=== PATIENT | female | born 1965 | race Caucasian/White ===

== ENCOUNTER 2017-08-09 07:24 | Day surgery (SDC) | payer MEDICAID ==
[~2017-08-09] VITALS: Ht 154.9 cm; Wt 51.4 kg
[~2017-08-09 07:24] MED LIST: AMLO10TA4 PO; hydrodiuril PO
[2017-08-09] MEDS ORDERED: ONDA4TAB12 PO (07:54)
[2017-08-09] MEDS ORDERED: AMIL5TAB8 PO (07:54)
[2017-08-09] MEDS ORDERED: ZINC50TA60 PO (07:54)
[2017-08-09] MEDS ORDERED: FURO-150 PO (07:54)
[2017-08-09] MEDS ORDERED: POTA20TA10 PO (07:54)
[2017-08-09] MEDS ORDERED: albumin (human) 25% 100 ML IV solution IV PRN (07:55)
[2017-08-09] MEDS ORDERED: normal saline 1000ml 1,000 ML IV PRN (07:55)
[2017-08-09 07:56] VITALS: BP 135/80
[2017-08-09] MEDS ORDERED: LIDOcaine 1% 30ml preserv. free vial SQ ONE (08:00)
[2017-08-09 08:31] VITALS: BP 109/81
[2017-08-09 08:45] VITALS: BP 112/77
[2017-08-09 08:56] VITALS: BP 123/80
[2017-08-09 09:00] VITALS: BP 118/75
[2017-08-09 09:45] LABS: ALBUMIN,BODY FLUID 1.1 G/DL; TOTAL PROTEIN,BODY FLUID 2.8 G/DL
[2017-08-09 10:36] LABS: LYMPHOCYTES,BODY FLUID 38 %; MONOCYTES,BODY FLUID 52 %; NEUTROPHILS,BODY FLUID 10 %
[2017-08-09 10:38] LABS: BF MESOTHELIAL CELLS FEW; BF RBC COUNT 63 /CU MM; BF WBC COUNT 130 /CU MM (0-1000); BFAPPEAR HAZY; BFCOLOR YELLOW; BFVOLUME 42 ML
== END 2017-08-09 09:02 | disposition home or self-care (01) ==
LOC: SSTAY O 07:24
PROVIDERS: ATTEND Radiology Diagnostic Radiology
DX: R18.8 Other ascites (principal); K76.9 Liver disease, unspecified; I10 Essential (primary) hypertension; F17.210 Nicotine dependence, cigarettes, uncomplicated; E87.6 Hypokalemia; Z79.899 Other long term (current) drug therapy; Z72.89 Other problems related to lifestyle; Z79.01 Long term (current) use of anticoagulants; Z90.710 Acquired absence of both cervix and uterus; Z98.890 Other specified postprocedural states; Z86.19 Personal history of other infectious and parasitic diseases; Z82.49 Family history of ischemic heart disease and other diseases of the circulatory system
CPT/HCPCS: 49083; 82042; 84157; 89051; A6257; J3490; J7030

== ENCOUNTER 2017-08-24 07:02 | Day surgery (SDC) | payer MEDICAID ==
[2017-08-24] VITALS (9 sets, daily range): BP systolic 91–102; BP diastolic 58–69
[~2017-08-24] VITALS: Ht 154.9 cm; Wt 48.6 kg
[~2017-08-24 07:02] MED LIST changes: +AMIL5TAB8 PO; +FURO-150 PO; +LIDOcaine 1% 30ml preserv. free vial SQ STA; +ONDA4TAB12 PO; +POTA20TA10 PO; +ZINC50TA60 PO; -hydrodiuril PO
[2017-08-24] MEDS ORDERED: TRAM50TA2 PO (07:32)
[2017-08-24] MEDS ORDERED: albumin (human) 25% 100 ML IV solution IV PRN (07:35)
[2017-08-24] MEDS ORDERED: normal saline 1000ml 1,000 ML IV PRN (07:35)
[2017-08-24 10:42] LABS: LYMPHOCYTES,BODY FLUID 45 %; MONOCYTES,BODY FLUID 31 %; NEUTROPHILS,BODY FLUID 24 %
[2017-08-24 10:43] LABS: BF MESOTHELIAL CELLS FEW; BF RBC COUNT 70 /CU MM; BF WBC COUNT 256 /CU MM (0-1000); BFAPPEAR HAZY; BFCOLOR YELLOW; BFVOLUME 54 ML; GLUCOSE,BODY FLUID 103 MG/DL
[2017-08-24 10:45] LABS: ALBUMIN,BODY FLUID < 0.6 G/DL
== END 2017-08-24 09:25 | disposition home or self-care (01) ==
LOC: SSTAY O 07:02
PROVIDERS: ATTEND Radiology Diagnostic Radiology
DX: R18.8 Other ascites (principal); B19.20 Unspecified viral hepatitis C without hepatic coma; I10 Essential (primary) hypertension; F17.210 Nicotine dependence, cigarettes, uncomplicated; F32.9 Major depressive disorder, single episode, unspecified; Z90.711 Acquired absence of uterus with remaining cervical stump; Z79.01 Long term (current) use of anticoagulants; Z79.891 Long term (current) use of opiate analgesic; Z79.899 Other long term (current) drug therapy; Z98.890 Other specified postprocedural states; Z72.89 Other problems related to lifestyle
CPT/HCPCS: 49083; 82042; 82945; 84157; 87070; 87075; 87102; 89051; A6257; J3490; J7030

== ENCOUNTER 2017-09-10 07:21 | Day surgery (SDC) | payer MEDICAID ==
[~2017-09-10] VITALS: Ht 154.9 cm; Wt 46.6 kg
[~2017-09-10 07:21] MED LIST changes: -LIDOcaine 1% 30ml preserv. free vial SQ STA; +LIDOcaine 1%/PF 5ML 10 MG/ML VIAL SQ STA; +TRAM50TA2 PO
[2017-09-10 07:39] VITALS: BP 130/84
[2017-09-10] MEDS ORDERED: normal saline 1000ml 1,000 ML IV PRN (07:50)
[2017-09-10 08:40] VITALS: BP 121/71
[2017-09-10 08:45] VITALS: BP 128/85
[2017-09-10 09:00] VITALS: BP 135/80
[2017-09-10 09:13] VITALS: BP 113/81
[2017-09-10 09:15] VITALS: BP 120/76
[2017-09-10 10:11] LABS: LDH,BODY FLUID 48 U/L
[2017-09-10 10:38] LABS: BFAPPEAR HAZY
[2017-09-10 10:39] LABS: BFCOLOR YELLOW; BFVOLUME 52 ML
[2017-09-10 10:40] LABS: BF WBC COUNT 177 /CU MM (0-1000)
[2017-09-10 10:41] LABS: BF MESOTHELIAL CELLS FEW; BF RBC COUNT 113 /CU MM; LYMPHOCYTES,BODY FLUID 36 %; MONOCYTES,BODY FLUID 57 %; NEUTROPHILS,BODY FLUID 7 %
[2017-09-10 10:44] LABS: OTHER CELLS,BODY FLUID MACROPHAGES
== END 2017-09-10 09:20 | disposition home or self-care (01) ==
LOC: SSTAY O 07:21
PROVIDERS: ATTEND Radiology Diagnostic Radiology
DX: R18.8 Other ascites (principal); I10 Essential (primary) hypertension; E87.6 Hypokalemia; F32.9 Major depressive disorder, single episode, unspecified; F17.210 Nicotine dependence, cigarettes, uncomplicated; Z90.710 Acquired absence of both cervix and uterus; Z86.19 Personal history of other infectious and parasitic diseases; Z98.890 Other specified postprocedural states; Z79.01 Long term (current) use of anticoagulants; Z79.899 Other long term (current) drug therapy; Z72.89 Other problems related to lifestyle; Z79.891 Long term (current) use of opiate analgesic; Z82.49 Family history of ischemic heart disease and other diseases of the circulatory system
CPT/HCPCS: 49083; 83615; 84157; 87070; 89051; A6257; J7030

== ENCOUNTER 2017-10-05 14:34 | Inpatient (IN) | payer MEDICAID ==
[~2017-10-05] VITALS: Ht 571.8 cm; Wt 54.5 kg
[~2017-10-05 14:34] MED LIST changes: -FURO-150 PO; -LIDOcaine 1%/PF 5ML 10 MG/ML VIAL SQ STA; -POTA20TA10 PO
[2017-10-05] MEDS ORDERED: normal saline 1000ML IV soln IV ONE (14:50)
[2017-10-05] MEDS ORDERED: ondansetron/PF 4mg/2ml inj IV ONE (14:50)
[2017-10-05] MEDS ORDERED: pantoprazole 40 MG vial IV ONE (14:50)
[2017-10-05 15:16] LABS: BASOPHILS % (AUTO) 0.1 % (0-1); EOSINOPHILS # (AUTO) 0.2 X10'3 (0-0.9); HEMATOCRIT 27.8 % (35.0-45.0); HEMOGLOBIN 9.3 g/dl (12.0-16.0); LYMPHOCYTES # (AUTO) 1.6 X10'3 (1.1-4.8); LYMPHOCYTES % (AUTO) 9.3 % (21-51); MEAN CORPUSCULAR HEMOGLOBIN 31.3 PG (27.0-31.0); MEAN CORPUSCULAR HGB CONC 33.5 % (33.0-36.5); MEAN CORPUSCULAR VOLUME 93.2 FL (78-98); MEAN PLATELET VOLUME 5.6 FL (7.4-10.4); MONOCYTES # (AUTO) 1.7 X10'3 (0-0.9); MONOCYTES % (AUTO) 9.5 % (2-12); NEUTROPHILS % (AUTO) 80.1 % (42-75); PLATELET COUNT 462 X10'3 (140-440); RED BLOOD COUNT 2.99 X10'6 (4.20-5.60); RED CELL DISTRIBUTION WIDTH 15.8 % (11.5-14.5); WHITE BLOOD COUNT 17.4 X10'3 (4.5-11.0)
[2017-10-05 15:28] LABS: INR 1.1 INR; PARTIAL THROMBOPLASTIN TIME 30 SECONDS (22-32); PROTHROMBIN TIME 11.4 SECONDS (9.0-12.0)
[2017-10-05 15:32] LABS: ALANINE AMINOTRANSFERASE 17 U/L (12-78); ALBUMIN 1.6 G/DL (3.4-5.0); ALBUMIN/GLOBULIN RATIO 0.3 (1.1-1.5); ALKALINE PHOSPHATASE 86 IU/L (46-116); ANION GAP 4 (8-16); ASPARTATE AMINO TRANSFERASE 23 U/L (10-37); BILIRUBIN,TOTAL 0.6 MG/DL (0.1-1.0); BLOOD UREA NITROGEN 23 MG/DL (7-18); BUN/CREATININE RATIO 15.1 (6.6-38.0); CALCIUM 8.6 MG/DL (8.5-10.1); CHLORIDE 104 MMOL/L (99-107); CREATININE 1.52 MG/DL (0.40-0.90); GLUCOSE 163 MG/DL (70-104); POTASSIUM 4.4 MMOL/L (3.5-5.1); SODIUM 136 MMOL/L (135-145); TOTAL CARBON DIOXIDE 28.3 MMOL/L (24-32); TOTAL PROTEIN 6.5 G/DL (6.4-8.2); eGFR 36 ML/MIN
[2017-10-05] MEDS ORDERED: octreotide inj. 1,250 MCG in normal saline 250ml IV soln 250 ML IV ONE (16:25)
[2017-10-05] MEDS ORDERED: labetalol 20mg/4ml (5mg/ml) syringe IV ONE (16:40)
[2017-10-05 16:42] LABS: CLARITY,URINE CLEAR (Clear); COLOR,URINE YELLOW (Yellow); GLUCOSE, URINE NEGATIVE (Neg); KETONES,URINE NEGATIVE (Neg); LEUKOCYTE ESTERASE ,URINE NEGATIVE (Neg); NITRITES, URINE NEGATIVE (Neg); OCCULT BLOOD,URINE NEGATIVE (Neg); PH,URINE 8.5 (4.8-8.0); PROTEIN,URINE TRACE mg/dl (Neg); UROBILINOGEN,URINE 0.2 E.U/dL (0.2-1.0)
[2017-10-05] MEDS: pantoprazole 40MG/NS 100ML BAG 100 ML IV SCH ×2 (16:48→22:23)
[2017-10-05] MEDS ORDERED: piperacillin/tazo 3.375gm/50ml 50 ML IV SCH (16:50)
[2017-10-05 16:51] LABS: UA COLLECTION TYPE FOLEY CATH
[2017-10-05 16:53] LABS: BACTERIA,URINE FEW /HPF (Neg); MUCUS STRANDS MODERATE /LPF (Neg); RBC,URINE 0-2 /HPF (0-2); SQUAMOUS EPITHELIAL CELL,UR MODERATE /LPF (FEW); WBC,URINE 0-4 /HPF (0-4)
[2017-10-05] MEDS ORDERED: ondansetron/PF 4mg/2ml inj IV PRN (17:50)
[2017-10-05] MEDS ORDERED: mag hydrox/Alum hydrox/simeth 30ml oral suspension PO PRN (17:50)
[2017-10-05] MEDS ORDERED: HYDROcodone/acetaminophen 10/325mg tab PO PRN (17:50)
[2017-10-05] MEDS ORDERED: diphenhydrAMINE 25mg capsule PO PRN (17:50)
[2017-10-05] MEDS ORDERED: HYDROmorphone inj. 0.5 MG/0.5 ML DISP.SYRIN IV PRN ×2 (17:50)
[2017-10-05] MEDS ORDERED: morphine 4 MG/ML inj SYRINge IV PRN ×2 (17:50)
[2017-10-05] MEDS ORDERED: acetaminophen 325mg tablet PO PRN ×2 (17:50)
[2017-10-05] MEDS ORDERED: normal saline 1000ml 1,000 ML IV SCH (17:50)
[2017-10-05] MEDS ORDERED: diphenhydrAMINE 50 mg/ml inj IV PRN (17:50)
[2017-10-05] MEDS ORDERED: acetaminophen 650mg rectal suppository RC PRN (17:50)
[2017-10-05] MEDS ORDERED: HYDROcodone/acetaminophen 5mg/325mg tablet PO PRN (17:50)
[2017-10-05] MEDS ORDERED: bisacodyl 10mg suppository rectal RC PRN (17:50)
[2017-10-05] MEDS ORDERED: metoclopramide 5 mg/ml inj IV PRN (17:50)
[2017-10-05] MEDS ORDERED: magnesium hydroxide 30ml (MOM) UD suspension PO PRN (17:50)
[2017-10-05] MEDS ORDERED: tranexamic acid 100mg/ml inj. IV ONE (18:00)
[2017-10-05 18:23] LABS: MAGNESIUM 1.9 MG/DL (1.5-2.4); PHOSPHORUS 4.4 MG/DL (2.3-4.5)
[2017-10-05] MEDS ORDERED: dexamethasone sod phosphate 10mg/ml inj IV STA (18:26)
[2017-10-05] MEDS ORDERED: levetiracetam inj 1,000 MG in normal saline 100ml IV soln 90 ML IV ONE (18:30)
[2017-10-05] MEDS ORDERED: TRANEXAMIC ACID IV ONE (18:30)
[2017-10-05] MEDS ORDERED: NORMAL SALINE IV ONE (18:30)
[2017-10-05] MEDS ORDERED: levetiracetam 250mg tablet PO ONE (18:45)
[2017-10-05] MEDS ORDERED: CefTRIAXone/D5W-Rocephin 1gm 50 ML IV SCH (20:00)
[2017-10-05] MEDS ORDERED: docusate sod 100mg capsule PO SCH (20:00)
[2017-10-05] MEDS ORDERED: pantoprazole 40MG/NS 100ML BAG 100 ML IV SCH (21:00)
[2017-10-05] MEDS ORDERED: temazepam 15mg capsule PO PRN (21:00)
[2017-10-06] MEDS: pantoprazole 40MG/NS 100ML BAG 100 ML IV SCH (01:22)
[2017-10-06] MEDS ORDERED: piperacillin/tazo 3.375gm/50ml 50 ML IV SCH (02:00)
[2017-10-06 03:28] VITALS: BP 122/70
[2017-10-06 07:02] LABS: OCCULT BLOOD STOOL NEGATIVE (Neg)
== END 2017-10-06 03:30 | disposition short-term general hospital (02) | DRG 720 ==
LOC: ER 14:34 → ED HOLD 17:50
PROVIDERS: ADMIT Family Medicine; ATTEND Family Medicine
DX: A41.9 Sepsis, unspecified organism (principal); I61.9 Nontraumatic intracerebral hemorrhage, unspecified; N17.9 Acute kidney failure, unspecified; R18.8 Other ascites; K76.6 Portal hypertension; I10 Essential (primary) hypertension; K92.2 Gastrointestinal hemorrhage, unspecified; D64.9 Anemia, unspecified; K74.60 Unspecified cirrhosis of liver; K80.20 Calculus of gallbladder without cholecystitis without obstruction; B19.20 Unspecified viral hepatitis C without hepatic coma; Z79.899 Other long term (current) drug therapy; Z90.710 Acquired absence of both cervix and uterus; Z86.73 Personal history of transient ischemic attack (TIA), and cerebral infarction without residual deficits
CPT/HCPCS: 36415; 70450; 71045; 74176; 80053; 81001; 82272; 83605; 83735; 83880; 84100; 85025; 85610; 85730; 86885; 86900; 86901; 87040; 93005; 96361; 96365; 96368; 96375; 99285; A6449; C9113; J0696; J1100; J1953; J2354; J2405; J2543; J3490; J7030

== ENCOUNTER 2017-10-29 07:30 | Day surgery (SDC) | payer MEDICAID ==
[2017-10-29] VITALS (7 sets, daily range): BP systolic 120–155; BP diastolic 76–93
[~2017-10-29] VITALS: Ht 154.9 cm; Wt 47.2 kg
[~2017-10-29 07:30] MED LIST changes: +LIDOcaine 1%/PF 5ML 10 MG/ML VIAL SQ ONE
[2017-10-29] MEDS ORDERED: albumin (human) 25% 100 ML IV solution IV PRN (08:05)
[2017-10-29] MEDS ORDERED: KEP500T PO (08:37)
[2017-10-29] MEDS ORDERED: LACT10SO PO (08:37)
[2017-10-29] MEDS ORDERED: PANT20TA2 PO (08:37)
[2017-10-29] MEDS ORDERED: LIDO700A47 TOP (08:37)
[2017-10-29] MEDS ORDERED: MULT-933 PO (08:37)
[2017-10-29] MEDS ORDERED: HYDR-565 PO (08:37)
[2017-10-29] MEDS ORDERED: SENN-161 PO (08:37)
[2017-10-29] MEDS ORDERED: THI100T PO (08:37)
[2017-10-29] MEDS ORDERED: LACTC PO (08:37)
[2017-10-29] MEDS ORDERED: SPIR25TA5 PO (08:37)
== END 2017-10-29 10:00 ==
LOC: SSTAY O 07:30
PROVIDERS: ATTEND Radiology Diagnostic Radiology
DX: R18.8 Other ascites (principal); I10 Essential (primary) hypertension; F32.9 Major depressive disorder, single episode, unspecified; Z90.711 Acquired absence of uterus with remaining cervical stump; Z79.01 Long term (current) use of anticoagulants; Z86.19 Personal history of other infectious and parasitic diseases; Z86.73 Personal history of transient ischemic attack (TIA), and cerebral infarction without residual deficits; Z87.891 Personal history of nicotine dependence; Z87.440 Personal history of urinary (tract) infections; Z79.891 Long term (current) use of opiate analgesic; Z98.890 Other specified postprocedural states; Z79.899 Other long term (current) drug therapy; Z82.49 Family history of ischemic heart disease and other diseases of the circulatory system
CPT/HCPCS: 49083; A6257; J2001; P9047

== ENCOUNTER 2017-11-30 07:25 | Day surgery (SDC) | payer MEDICAID ==
[~2017-11-30] VITALS: Ht 154.9 cm; Wt 50.2 kg
[2017-11-30] VITALS (9 sets, daily range): BP systolic 113–149; BP diastolic 67–93
[~2017-11-30 07:25] MED LIST changes: -AMIL5TAB8 PO; +HYDR-565 PO; +KEP500T PO; +LACT10SO PO; +LACTC PO; +LIDO700A47 TOP; +LIDOcaine 1% (10mg/ml)w/preservative injection 20ml MDV SQ ONE; +MULT-933 PO; +PANT20TA2 PO; +SENN-161 PO; +SPIR25TA5 PO; +THI100T PO
[2017-11-30] MEDS ORDERED: normal saline 1000ml 1,000 ML IV PRN (08:00)
[2017-11-30] MEDS ORDERED: albumin (human) 25% 100 ML IV solution IV PRN (08:00)
== END 2017-11-30 10:37 | disposition home or self-care (01) ==
LOC: SSTAY O 07:25
PROVIDERS: ATTEND Radiology Diagnostic Radiology
DX: R18.8 Other ascites (principal); I10 Essential (primary) hypertension; F17.210 Nicotine dependence, cigarettes, uncomplicated; F32.9 Major depressive disorder, single episode, unspecified; Z86.19 Personal history of other infectious and parasitic diseases; Z79.891 Long term (current) use of opiate analgesic; Z86.73 Personal history of transient ischemic attack (TIA), and cerebral infarction without residual deficits; Z87.440 Personal history of urinary (tract) infections; Z90.711 Acquired absence of uterus with remaining cervical stump; Z98.890 Other specified postprocedural states; Z79.899 Other long term (current) drug therapy; Z82.49 Family history of ischemic heart disease and other diseases of the circulatory system
CPT/HCPCS: 49083; A6257; J2001; J7030; P9047

== ENCOUNTER 2017-12-24 16:13 | Observation (INO) | payer MEDICAID ==
[~2017-12-24] VITALS: Ht 162.6 cm; Wt 51.0 kg
[2017-12-24] VITALS (7 sets, daily range): BP systolic 123–144; BP diastolic 77–95
[~2017-12-24 16:13] MED LIST changes: +HYDR-4353 PO; -HYDR-565 PO; -LIDOcaine 1% (10mg/ml)w/preservative injection 20ml MDV SQ ONE; -LIDOcaine 1%/PF 5ML 10 MG/ML VIAL SQ ONE
[2017-12-24] MEDS ORDERED: normal saline 1000ML IV soln IVB ONE (16:25)
[2017-12-24 16:48] LABS: BASOPHILS # (AUTO) 0.1 X10'3 (0-0.2); BASOPHILS % (AUTO) 0.8 % (0-1); EOSINOPHILS # (AUTO) 0.3 X10'3 (0-0.9); EOSINOPHILS % (AUTO) 3.2 % (0-6); HEMATOCRIT 22.6 % (35.0-45.0); HEMOGLOBIN 7.4 g/dl (12.0-16.0); LYMPHOCYTES # (AUTO) 2.1 X10'3 (1.1-4.8); LYMPHOCYTES % (AUTO) 26.8 % (21-51); MEAN CORPUSCULAR HEMOGLOBIN 28.2 PG (27.0-31.0); MEAN CORPUSCULAR HGB CONC 32.5 % (33.0-36.5); MEAN CORPUSCULAR VOLUME 86.8 FL (78-98); MEAN PLATELET VOLUME 5.7 FL (7.4-10.4); MONOCYTES # (AUTO) 1.2 X10'3 (0-0.9); MONOCYTES % (AUTO) 14.4 % (2-12); NEUTROPHILS # (AUTO) 4.4 X10'3 (1.8-7.7); NEUTROPHILS % (AUTO) 54.8 % (42-75); PLATELET COUNT 529 X10'3 (140-440); RED BLOOD COUNT 2.61 X10'6 (4.20-5.60); RED CELL DISTRIBUTION WIDTH 15.9 % (11.5-14.5)
[2017-12-24 16:59] LABS: ALANINE AMINOTRANSFERASE 14 U/L (12-78); ALBUMIN 2.5 G/DL (3.4-5.0); ALBUMIN/GLOBULIN RATIO 0.4 (1.1-1.5); ALKALINE PHOSPHATASE 126 IU/L (46-116); ANION GAP 11 (8-16); ASPARTATE AMINO TRANSFERASE 29 U/L (10-37); BILIRUBIN,TOTAL 0.2 MG/DL (0.1-1.0); BLOOD UREA NITROGEN 25 MG/DL (7-18); BUN/CREATININE RATIO 17.5 (6.6-38.0); CALCIUM 9.6 MG/DL (8.5-10.1); CHLORIDE 100 MMOL/L (99-107); CREATININE 1.43 MG/DL (0.40-0.90); GLUCOSE 125 MG/DL (70-104); POTASSIUM 3.7 MMOL/L (3.5-5.1); SODIUM 138 MMOL/L (135-145); TOTAL CARBON DIOXIDE 27.4 MMOL/L (24-32); TOTAL PROTEIN 8.2 G/DL (6.4-8.2); eGFR 39 ML/MIN
[2017-12-24 17:03] LABS: TROPONIN I < 0.04 NG/ML (0.0-0.05)
[2017-12-24 17:15] LABS: CLARITY,URINE SLIGHTLY CLOUDY (Clear); COLOR,URINE STRAW (Yellow); GLUCOSE, URINE NEGATIVE (Neg); KETONES,URINE NEGATIVE (Neg); LEUKOCYTE ESTERASE ,URINE MODERATE (Neg); NITRITES, URINE NEGATIVE (Neg); OCCULT BLOOD,URINE NEGATIVE (Neg); PH,URINE 6.5 (4.8-8.0); PROTEIN,URINE NEGATIVE (Neg); UA COLLECTION TYPE CLN CATCH MIDSTREAM; UROBILINOGEN,URINE 0.2 E.U/dL (0.2-1.0)
[2017-12-24] MEDS ORDERED: FOLI1TAB16 PO (17:16)
[2017-12-24] MEDS ORDERED: GABA-530 PO (17:16)
[2017-12-24] MEDS ORDERED: FURO40TA4 PO (17:16)
[2017-12-24] MEDS ORDERED: POTA20TA19 PO (17:18)
[2017-12-24 17:21] LABS: SQUAMOUS EPITHELIAL CELL,UR MANY /LPF (FEW)
[2017-12-24 17:22] LABS: MUCUS STRANDS NONE SEEN /LPF (Neg); TRANSITIONAL EPI CELLS,URINE MODERATE /HPF
[2017-12-24 17:24] LABS: BACTERIA,URINE 3+ /HPF (Neg); RBC,URINE 0-2 /HPF (0-2); WBC,URINE 30-50 /HPF (0-4)
[2017-12-24] MEDS ORDERED: potassium Cl 20 mEq SR tablet PO PRN ×2 (17:35)
[2017-12-24] MEDS ORDERED: acetaminophen 325mg tablet PO PRN ×2 (17:35)
[2017-12-24] MEDS ORDERED: magnesium hydroxide 30ml (MOM) UD suspension PO PRN (17:35)
[2017-12-24] MEDS ORDERED: ondansetron/PF 4mg/2ml inj IV PRN (17:35)
[2017-12-24] MEDS ORDERED: potassium Cl 40MEQ/NS 500ml 500 ML IV PRN ×2 (17:35)
[2017-12-24] MEDS ORDERED: mag hydrox/Alum hydrox/simeth 30ml oral suspension PO PRN (17:35)
[2017-12-24] MEDS ORDERED: magnesium 1gm/100ml D5W IVPB 100 ML IV PRN (17:35)
[2017-12-24] MEDS ORDERED: magnesium Cl slow-release 64mg tablet PO PRN (17:35)
[2017-12-24] MEDS ORDERED: magnesium 4gm in 100ml NS 100 ML IV PRN (17:35)
[2017-12-24] MEDS ORDERED: temazepam 15mg capsule PO PRN (21:00)
[2017-12-25] VITALS (7 sets, daily range): BP systolic 139–156; BP diastolic 79–102
[2017-12-25] MEDS: normal saline 1000ml 1,000 ML IV SCH ×2 (04:45→07:51)
[2017-12-25] MEDS ORDERED: pantoprazole 40mg Tablet.DR PO SCH ×2 (07:30→20:00)
[2017-12-25] MEDS ORDERED: K and/or MAG REPLACEMENT MC SCH (08:00)
[2017-12-25 08:39] LABS: HEMATOCRIT 34.6 % (35.0-45.0); HEMOGLOBIN 11.6 g/dl (12.0-16.0); MEAN CORPUSCULAR HGB CONC 33.4 % (33.0-36.5); MEAN CORPUSCULAR VOLUME 86.9 FL (78-98); MEAN PLATELET VOLUME 5.6 FL (7.4-10.4); PLATELET COUNT 424 X10'3 (140-440); RED BLOOD COUNT 3.98 X10'6 (4.20-5.60); RED CELL DISTRIBUTION WIDTH 14.7 % (11.5-14.5); WHITE BLOOD COUNT 8.4 X10'3 (4.5-11.0)
[2017-12-25 08:48] LABS: ALBUMIN 2.6 G/DL (3.4-5.0); ANION GAP 10 (8-16); BLOOD UREA NITROGEN 21 MG/DL (7-18); CALCIUM 9.9 MG/DL (8.5-10.1); CHLORIDE 103 MMOL/L (99-107); CREATININE 1.31 MG/DL (0.40-0.90); GLUCOSE 103 MG/DL (70-104); MAGNESIUM 1.7 MG/DL (1.5-2.4); SODIUM 138 MMOL/L (135-145); TOTAL CARBON DIOXIDE 24.7 MMOL/L (24-32); eGFR 43 ML/MIN
[2017-12-25] MEDS ORDERED: furosemide 40mg tablet PO SCH (11:00)
[2017-12-25] MEDS ORDERED: spironolactone 25 MG tablet PO SCH (11:00)
[2017-12-25] MEDS ORDERED: HYDROcodone/acetaminophen 10/325mg tab PO PRN (11:05)
[2017-12-25] MEDS ORDERED: levetiracetam 250mg tablet PO SCH (11:15)
[2017-12-25] MEDS ORDERED: HYDROcodone/acetaminophen 10/325mg tab PO SCH (12:00)
[2017-12-25] MEDS ORDERED: gabapentin 100mg capsule PO SCH (20:00)
[2017-12-25] MEDS ORDERED: ondansetron 4mg rapidly disintigrating tab PO SCH (20:00)
[2017-12-26] MEDS ORDERED: lactulose 20gm/30ml cup PO SCH (08:00)
[2017-12-26] MEDS ORDERED: folic acid 1mg tablet PO SCH (08:00)
[2017-12-26] MEDS ORDERED: potassium Cl 20 mEq SR tablet PO SCH (08:00)
== END 2017-12-25 11:55 | disposition home health service (06) ==
LOC: ER 16:13 → ED HOLD 17:33 → SUR 3N 20:10
PROVIDERS: ADMIT Family Medicine; ATTEND Family Medicine
DX: D64.9 Anemia, unspecified (principal); K70.31 Alcoholic cirrhosis of liver with ascites; I12.9 Hypertensive chronic kidney disease with stage 1 through stage 4 chronic kidney disease, or unspecified chronic kidney disease; N18.3 Chronic kidney disease, stage 3 (moderate); I85.00 Esophageal varices without bleeding; I69.252 Hemiplegia and hemiparesis following other nontraumatic intracranial hemorrhage affecting left dominant side; Z90.710 Acquired absence of both cervix and uterus
CPT/HCPCS: 36415; 36430; 71045; 80048; 80053; 81001; 82140; 83735; 84484; 85025; 85027; 86885; 86900; 86901; 86920; 87070; 93005; 97110; 97161; 97530; 99291; G0378; J7030; P9016

== ENCOUNTER 2017-12-26 09:19 | Day surgery (SDC) | payer MEDICAID ==
[2017-12-26] VITALS (8 sets, daily range): BP systolic 117–156; BP diastolic 77–95
[~2017-12-26] VITALS: Ht 154.9 cm; Wt 45.9 kg
[~2017-12-26 09:19] MED LIST changes: -AMLO10TA4 PO; +FOLI1TAB16 PO; +FURO40TA4 PO; +GABA-530 PO; -LACTC PO; -LIDO700A47 TOP; -MULT-933 PO; +POTA20TA19 PO; -SENN-161 PO; -THI100T PO; -TRAM50TA2 PO; -ZINC50TA60 PO
[2017-12-26] MEDS ORDERED: albumin (human) 25% 100 ML IV solution IV PRN (09:55)
[2017-12-26] MEDS ORDERED: normal saline 1000ml 1,000 ML IV PRN (09:55)
[2017-12-26] MEDS ORDERED: LIDOcaine 1% (10mg/ml)w/preservative injection 20ml MDV SQ ONE (10:30)
== END 2017-12-26 13:00 | disposition home or self-care (01) ==
LOC: SSTAY O 09:19
PROVIDERS: ATTEND Radiology Diagnostic Radiology
DX: R18.8 Other ascites (principal); I10 Essential (primary) hypertension; F32.9 Major depressive disorder, single episode, unspecified; F10.21 Alcohol dependence, in remission; Z86.73 Personal history of transient ischemic attack (TIA), and cerebral infarction without residual deficits; Z87.891 Personal history of nicotine dependence; Z87.440 Personal history of urinary (tract) infections; Z90.711 Acquired absence of uterus with remaining cervical stump; Z79.891 Long term (current) use of opiate analgesic; Z86.19 Personal history of other infectious and parasitic diseases; Z98.890 Other specified postprocedural states; Z79.899 Other long term (current) drug therapy; Z82.49 Family history of ischemic heart disease and other diseases of the circulatory system
CPT/HCPCS: 49083; J2001; J7030; P9047

== ENCOUNTER 2018-04-10 07:28 | Day surgery (SDC) | payer MEDICAID ==
[~2018-04-10] VITALS: Ht 154.9 cm; Wt 57.4 kg
[2018-04-10] MEDS ORDERED: albumin 25% 50mL bottle X 2 BOTTLES IV ONE (07:50)
[2018-04-10] MEDS ORDERED: normal saline 1000ml 1,000 ML IV PRN (07:50)
[2018-04-10 08:00] VITALS: BP 103/63
[2018-04-10] MEDS ORDERED: LIDOcaine 1% 30ml preserv. free vial SQ ONE (08:00)
[2018-04-10 08:15] VITALS: BP 103/63
== END 2018-04-10 08:35 | disposition home or self-care (01) ==
LOC: SSTAY O 07:28
PROVIDERS: ATTEND Radiology Vascular & Interventional Radiology
DX: K70.31 Alcoholic cirrhosis of liver with ascites (principal); I85.00 Esophageal varices without bleeding; I12.9 Hypertensive chronic kidney disease with stage 1 through stage 4 chronic kidney disease, or unspecified chronic kidney disease; N18.3 Chronic kidney disease, stage 3 (moderate); D47.3 Essential (hemorrhagic) thrombocythemia; F10.21 Alcohol dependence, in remission; F32.9 Major depressive disorder, single episode, unspecified; Z87.440 Personal history of urinary (tract) infections; Z90.711 Acquired absence of uterus with remaining cervical stump; Z79.891 Long term (current) use of opiate analgesic; Z86.73 Personal history of transient ischemic attack (TIA), and cerebral infarction without residual deficits; Z87.891 Personal history of nicotine dependence; Z86.19 Personal history of other infectious and parasitic diseases; Z98.890 Other specified postprocedural states; Z79.899 Other long term (current) drug therapy; Z82.49 Family history of ischemic heart disease and other diseases of the circulatory system
CPT/HCPCS: 76705; J3490; J7030

== ENCOUNTER 2018-04-27 12:08 | Inpatient (IN) | payer MEDICAID ==
[~2018-04-27] VITALS: Ht 162.6 cm; Wt 60.0 kg
[2018-04-27 12:49] LABS: BASOPHILS # (AUTO) 0.1 X10'3 (0-0.2); BASOPHILS % (AUTO) 0.4 % (0-1); EOSINOPHILS # (AUTO) 0.1 X10'3 (0-0.9); EOSINOPHILS % (AUTO) 0.4 % (0-6); HEMATOCRIT 31.6 % (35.0-45.0); HEMOGLOBIN 10.1 g/dl (12.0-16.0); LYMPHOCYTES # (AUTO) 1.8 X10'3 (1.1-4.8); LYMPHOCYTES % (AUTO) 12.8 % (21-51); MEAN CORPUSCULAR HGB CONC 31.9 g/dL (33.0-36.5); MEAN CORPUSCULAR VOLUME 87.7 FL (78-98); MEAN PLATELET VOLUME 6.6 FL (7.4-10.4); MONOCYTES # (AUTO) 0.4 X10'3 (0-0.9); MONOCYTES % (AUTO) 3.1 % (2-12); NEUTROPHILS # (AUTO) 11.9 X10'3 (1.8-7.7); NEUTROPHILS % (AUTO) 83.3 % (42-75); PLATELET COUNT 405 X10'3 (140-440); RED CELL DISTRIBUTION WIDTH 16.1 % (11.5-14.5); WHITE BLOOD COUNT 14.3 X10'3 (4.5-11.0)
[2018-04-27 13:04] LABS: INR 1.1 INR; PARTIAL THROMBOPLASTIN TIME 28 SECONDS (22-32)
[2018-04-27] MEDS ORDERED: lactulose 20gm/30ml cup PO ONE (13:05)
[2018-04-27 13:19] LABS: ACETAMINOPHEN < 2.0 UG/ML (10-30); ALANINE AMINOTRANSFERASE 21 U/L (12-78); ALBUMIN 3.7 G/DL (3.4-5.0); ALBUMIN/GLOBULIN RATIO 0.6 (1.1-1.5); ALKALINE PHOSPHATASE 112 IU/L (46-116); ANION GAP 11 (8-16); ASPARTATE AMINO TRANSFERASE 23 U/L (10-37); BILIRUBIN,TOTAL 0.6 MG/DL (0.1-1.0); BLOOD UREA NITROGEN 18 MG/DL (7-18); BUN/CREATININE RATIO 10.7 (6.6-38.0); CALCIUM 11.9 MG/DL (8.5-10.1); CHLORIDE 102 MMOL/L (99-107); CREATININE 1.69 MG/DL (0.40-0.90); ETHANOL < 0.010 GM/DL (0.0-0.010); GLUCOSE 195 MG/DL (70-104); MAGNESIUM 1.5 MG/DL (1.5-2.4); PHOSPHORUS 4.1 MG/DL (2.3-4.5); POTASSIUM 4.8 MMOL/L (3.5-5.1); SODIUM 139 MMOL/L (135-145); TOTAL CARBON DIOXIDE 25.6 MMOL/L (24-32); TOTAL PROTEIN 9.7 G/DL (6.4-8.2); eGFR 32 ML/MIN
[2018-04-27 14:28] LABS: CLARITY,URINE CLOUDY (Clear); COLOR,URINE STRAW (Yellow); GLUCOSE, URINE NEGATIVE (Neg); KETONES,URINE NEGATIVE (Neg); LEUKOCYTE ESTERASE ,URINE NEGATIVE (Neg); NITRITES, URINE POSITIVE (Neg); OCCULT BLOOD,URINE TRACE-LYSED (Neg); PROTEIN,URINE TRACE mg/dl (Neg); UROBILINOGEN,URINE 0.2 E.U/dL (0.2-1.0)
[2018-04-27 14:31] LABS: UA COLLECTION TYPE FOLEY CATH
[2018-04-27 14:34] LABS: SQUAMOUS EPITHELIAL CELL,UR FEW /LPF (FEW)
[2018-04-27 14:35] LABS: BACTERIA,URINE 3+ /HPF (Neg); RBC,URINE 0-2 /HPF (0-2); WBC,URINE 0-4 /HPF (0-4)
[2018-04-27 14:39] LABS: URINE AMPHETAMINE SCREEN NEGATIVE (Neg); URINE BARBITUATE SCREEN NEGATIVE (Neg); URINE BENZODIAZEPINES SCREEN NEGATIVE (Neg); URINE CANNABINOID SCREEN POSITIVE (Neg); URINE COCAINE SCREEN NEGATIVE (Neg); URINE METHADONE SCREEN NEGATIVE (Neg); URINE OPIATE SCREEN NEGATIVE (Neg); URINE PHENCYCLIDINE SCREEN NEGATIVE (Neg)
[2018-04-27] MEDS ORDERED: CefTRIAXone/D5W-Rocephin 1gm 50 ML IV ONE (14:50)
[2018-04-27] MEDS ORDERED: GABA-532 PO ×2 (15:42→19:02)
[2018-04-27] MEDS ORDERED: NADO20TA PO (15:42)
[2018-04-27] MEDS: dextrose 5%-normal saline 1,000 ML IV SCH (17:01)
--- NOTE | 2018-04-27 18:24 | NUR ---
SPOKE WITH HOSPITALIST, STATES HE PUT IN ADMIT ORDERS. TOLD MD THAT ORDERS WERE NOT SHOWING UP IN [facility].
[2018-04-27] MEDS ORDERED: magnesium hydroxide 30ml (MOM) UD suspension PO PRN (18:35)
[2018-04-27] MEDS ORDERED: mag hydrox/Alum hydrox/simeth 30ml oral suspension PO PRN (18:35)
[2018-04-27] MEDS ORDERED: magnesium 2GM in 50ml NS 50 ML IV PRN (18:35)
[2018-04-27] MEDS ORDERED: potassium Cl 20 mEq SR tablet PO PRN ×2 (18:35)
[2018-04-27] MEDS ORDERED: magnesium 4gm in 100ml NS 100 ML IV PRN (18:35)
[2018-04-27] MEDS ORDERED: potassium Cl 40MEQ/NS 500ml 500 ML IV PRN ×2 (18:35)
[2018-04-27] MEDS ORDERED: magnesium Cl slow-release 64mg tablet PO PRN (18:35)
[2018-04-27] MEDS ORDERED: acetaminophen 325mg tablet PO PRN (18:35)
[2018-04-27] MEDS ORDERED: SPIR100T5 PO (19:02)
--- NOTE | 2018-04-27 19:32 | NUR ---
PT HAS VOMITED A FEW TIMES SINCE SHE HAS BEEN HERE. PT IS MORE ALERT NOW AND ABLE TO ANSWER SIMPLE QUESTIONS. HER MEDS WERE ENTERED IN THE COMPUTER ACCORDING TO THE BOTTLES PROVIDED BY JANNETTE WHO CAME WITH HER. WILL GIVE PT NAUSEA MEDS ORDERED
[2018-04-27] MEDS: ondansetron/PF 4mg/2ml inj IV PRN (19:36)
[2018-04-27] MEDS ORDERED: hyDRALAzine 10mg tablet PO PRN (19:45)
[2018-04-27] MEDS ORDERED: labetalol 20mg/4ml (5mg/ml) syringe IV PRN (19:45)
[2018-04-27] MEDS: metoprolol tartrate 25mg tablet PO SCH (20:00)
[2018-04-27] MEDS: lactulose 20gm/30ml cup PO SCH (20:00)
[2018-04-27] MEDS: lactobacillus rhamnosus 10,000 MMU CELLS/CAPSULE PO SCH (20:00)
[2018-04-27 20:26] LABS: ABG BASE EXCESS -0.9 mmol/L (-2.0-3.0); ABG HCO3 22.5 mmol/L (22.0-26.0); ABG OXYGEN SATURATION 93.4 % (95-98); ABG PCO2 (T) 33.1 mmHg (32.0-45.0); ABG PO2 (T) 69.2 mmHg (83-108); ALLEN'S TEST Positive; FCOHb 0.2 % (0.5-1.5); FMetHb 0.1 % (0.3-1.12); FO2Hb 93.1 % (94-100); TOTAL HEMOGLOBIN 11.5 G/dl (12.0-16.0)
--- NOTE | 2018-04-27 21:41 | NUR ---
ROOM AND NURSE NOT READY FOR REPORT.
--- NOTE | 2018-04-27 22:40 | NUR ---
Received report from Amber VILCHIS. Patient came up via gurney. Patient transferred to bed via slide board. IV fluids running per MD orders. Bernstein draining yellow urine via gravity. Vitals taken. Bed in low and locked position. Call light placed within reach. Bed alarm placed for ALOC.
[2018-04-27] MEDS ORDERED: enalaprilat dihydrate 2.5mg/2ml vial IV ONE (23:05)
[2018-04-27 23:06] VITALS: BP 199/101
[2018-04-27 23:17] VITALS: BP 202/102
[2018-04-27 23:28] VITALS: BP 193/99
[2018-04-28] VITALS (8 sets, daily range): BP systolic 145–210; BP diastolic 86–114
[2018-04-28] MEDS ORDERED: cloNIDine 0.1 MG/24 HOUR patch (7 day patch) TD ONE (00:35)
[2018-04-28] MEDS: dextrose 5%-normal saline 1,000 ML IV SCH ×2 (05:42→20:05)
--- NOTE | 2018-04-28 06:43 | NUR ---
Problems reprioritized. Patient report given, questions answered & plan of care reviewed with Sivan VILCHIS.
[2018-04-28 07:43] LABS: HEMATOCRIT 34.8 % (35.0-45.0); HEMOGLOBIN 11.4 g/dl (12.0-16.0); MEAN CORPUSCULAR HEMOGLOBIN 28.5 PG (27.0-31.0); MEAN CORPUSCULAR HGB CONC 32.7 g/dL (33.0-36.5); MEAN CORPUSCULAR VOLUME 87.1 FL (78-98); MEAN PLATELET VOLUME 6.7 FL (7.4-10.4); PLATELET COUNT 491 X10'3 (140-440); RED BLOOD COUNT 3.99 X10'6 (4.20-5.60); RED CELL DISTRIBUTION WIDTH 15.6 % (11.5-14.5)
[2018-04-28 07:50] LABS: ALBUMIN 3.1 G/DL (3.4-5.0); ANION GAP 15 (8-16); BLOOD UREA NITROGEN 25 MG/DL (7-18); BUN/CREATININE RATIO 15.2 (6.6-38.0); CALCIUM 10.4 MG/DL (8.5-10.1); CHLORIDE 102 MMOL/L (99-107); CREATININE 1.65 MG/DL (0.40-0.90); GLUCOSE 258 MG/DL (70-104); MAGNESIUM 1.4 MG/DL (1.5-2.4); POTASSIUM 4.2 MMOL/L (3.5-5.1); SODIUM 139 MMOL/L (135-145); TOTAL CARBON DIOXIDE 22.3 MMOL/L (24-32); WHITE BLOOD COUNT 25.8 X10'3 (4.5-11.0); eGFR 33 ML/MIN
[2018-04-28] MEDS ORDERED: CefTRIAXone 2gm/D5W 50ml 50 ML IV SCH (08:00)
[2018-04-28] MEDS: K and/or MAG REPLACEMENT MC SCH (08:00)
[2018-04-28] MEDS: enoxaparin 40mg/0.4ml syringe SQ SCH (08:44)
[2018-04-28 08:51] LABS: ANISOCYTOSIS 1+; PLATELET ESTIMATE INCREASED; TOTAL CELLS COUNTED 100
[2018-04-28 08:52] LABS: TOXIC GRANULATION 1+
[2018-04-28] MEDS: pantoprazole 40mg Tablet.DR PO SCH ×2 (08:58→19:54)
[2018-04-28] MEDS: lactobacillus rhamnosus 10,000 MMU CELLS/CAPSULE PO SCH ×2 (09:01→21:54)
[2018-04-28] MEDS: lactulose 20gm/30ml cup PO SCH ×3 (09:01→21:27)
[2018-04-28] MEDS: folic acid 1mg tablet PO SCH (09:02)
[2018-04-28] MEDS: metoprolol tartrate 25mg tablet PO SCH ×3 (09:04→21:28)
--- NOTE | 2018-04-28 09:12 | NUR ---
graphics edit technician at bedside
[2018-04-28] MEDS: albumin 25% 50mL bottle 100 ML IV SCH (21:27)
[2018-04-28] MEDS: cloNIDine 0.1 mg tablet PO SCH (22:43)
[2018-04-28] MEDS: ondansetron/PF 4mg/2ml inj IV PRN (23:09)
[2018-04-29] VITALS (7 sets, daily range): BP systolic 92–120; BP diastolic 51–64
[2018-04-29 07:12] LABS: ALBUMIN 2.8 G/DL (3.4-5.0); ANION GAP 11 (8-16); BLOOD UREA NITROGEN 31 MG/DL (7-18); BUN/CREATININE RATIO 20.5 (6.6-38.0); CALCIUM 9.1 MG/DL (8.5-10.1); CHLORIDE 113 MMOL/L (99-107); CREATININE 1.51 MG/DL (0.40-0.90); GLUCOSE 118 MG/DL (70-104); MAGNESIUM 1.6 MG/DL (1.5-2.4); POTASSIUM 3.6 MMOL/L (3.5-5.1); SODIUM 147 MMOL/L (135-145); TOTAL CARBON DIOXIDE 23.4 MMOL/L (24-32); eGFR 36 ML/MIN
[2018-04-29] MEDS: pantoprazole 40mg Tablet.DR PO SCH ×2 (07:30→18:34)
[2018-04-29] MEDS: lactobacillus rhamnosus 10,000 MMU CELLS/CAPSULE PO SCH ×2 (07:30→20:55)
[2018-04-29] MEDS: cloNIDine 0.1 mg tablet PO SCH ×2 (07:31→20:00)
[2018-04-29] MEDS: lactulose 20gm/30ml cup PO SCH ×2 (07:31→20:55)
[2018-04-29] MEDS: folic acid 1mg tablet PO SCH (07:31)
[2018-04-29] MEDS: enoxaparin 40mg/0.4ml syringe SQ SCH (07:32)
[2018-04-29] MEDS: dextrose 5%-normal saline 1,000 ML IV SCH ×2 (07:50→23:10)
[2018-04-29 08:00] LABS: BASOPHILS # (AUTO) 0.1 X10'3 (0-0.2); BASOPHILS % (AUTO) 0.3 % (0-1); EOSINOPHILS # (AUTO) 0.1 X10'3 (0-0.9); EOSINOPHILS % (AUTO) 0.4 % (0-6); HEMATOCRIT 24.8 % (35.0-45.0); HEMOGLOBIN 8.4 g/dl (12.0-16.0); LYMPHOCYTES % (AUTO) 23.1 % (21-51); MEAN CORPUSCULAR HGB CONC 33.7 g/dL (33.0-36.5); MEAN CORPUSCULAR VOLUME 88.8 FL (78-98); MEAN PLATELET VOLUME 6.5 FL (7.4-10.4); MONOCYTES % (AUTO) 11.4 % (2-12); NEUTROPHILS # (AUTO) 11.3 X10'3 (1.8-7.7); NEUTROPHILS % (AUTO) 64.8 % (42-75); PLATELET COUNT 292 X10'3 (140-440); RED BLOOD COUNT 2.79 X10'6 (4.20-5.60); WHITE BLOOD COUNT 17.5 X10'3 (4.5-11.0)
[2018-04-29] MEDS: metoprolol tartrate 25mg tablet PO SCH ×2 (08:00→20:00)
[2018-04-29] MEDS: K and/or MAG REPLACEMENT MC SCH (08:00)
[2018-04-29] MEDS ORDERED: FURO40TA4 PO (08:03)
[2018-04-29] MEDS ORDERED: LEVE500T PO (08:04)
[2018-04-29] MEDS ORDERED: sincalide inj 0 MCG in normal saline 50ml IV soln 50 ML IV ONE (09:45)
[2018-04-29] MEDS: piperacillin/tazo 4.5gm/100ml 100 ML IV SCH ×3 (10:00→23:10)
[2018-04-29] MEDS: albumin 25% 50mL bottle 100 ML IV SCH ×2 (11:21→20:57)
--- NOTE | 2018-04-29 14:04 | NUR ---
Malnutrition trigger: RN malnutrition screen answered all questions w/ NO; unsure how malnutrition triggered. Pt has severe weakness w/ PO pending. Pt admit w/ encephalopathy r/t infection and hx liver disease requiring paracentesis secondary to ascites. Encephalopathy resolved per MD note but pt currently AOx1. Will monitor for weakness and PO hx as malnutrition criteria this admit; currently lacking of minimum 2 criteria. Addendum: 04/29/18 at [address] Amended: Links added.
--- NOTE | 2018-04-29 19:13 | NUR ---
report rec'd from paulino Finnegan.
[2018-04-29] MEDS: acetaminophen 325mg tablet PO PRN (20:55)
[2018-04-30] MEDS: acetaminophen 325mg tablet PO PRN ×2 (03:41→20:27)
[2018-04-30 06:00] VITALS: BP 126/65
--- NOTE | 2018-04-30 06:26 | NUR ---
REPORT GIVEN TO MAME BRYAN.
[2018-04-30 07:09] LABS: ALBUMIN 3.4 G/DL (3.4-5.0); ANION GAP 12 (8-16); BLOOD UREA NITROGEN 25 MG/DL (7-18); BUN/CREATININE RATIO 13.7 (6.6-38.0); CALCIUM 9.4 MG/DL (8.5-10.1); CHLORIDE 108 MMOL/L (99-107); CREATININE 1.82 MG/DL (0.40-0.90); GLUCOSE 106 MG/DL (70-104); MAGNESIUM 1.6 MG/DL (1.5-2.4); POTASSIUM 3.2 MMOL/L (3.5-5.1); SODIUM 140 MMOL/L (135-145); TOTAL CARBON DIOXIDE 20.2 MMOL/L (24-32); eGFR 29 ML/MIN
[2018-04-30 07:36] LABS: BASOPHILS # (AUTO) 0.1 X10'3 (0-0.2); EOSINOPHILS # (AUTO) 0.1 X10'3 (0-0.9); EOSINOPHILS % (AUTO) 2.1 % (0-6); HEMOGLOBIN 7.1 g/dl (12.0-16.0); LYMPHOCYTES # (AUTO) 2.4 X10'3 (1.1-4.8); LYMPHOCYTES % (AUTO) 36.9 % (21-51); MEAN CORPUSCULAR HEMOGLOBIN 28.5 PG (27.0-31.0); MEAN CORPUSCULAR HGB CONC 32.9 g/dL (33.0-36.5); MEAN CORPUSCULAR VOLUME 86.6 FL (78-98); MEAN PLATELET VOLUME 6.4 FL (7.4-10.4); MONOCYTES # (AUTO) 0.7 X10'3 (0-0.9); MONOCYTES % (AUTO) 11.1 % (2-12); NEUTROPHILS # (AUTO) 3.2 X10'3 (1.8-7.7); NEUTROPHILS % (AUTO) 48.9 % (42-75); PLATELET COUNT 204 X10'3 (140-440); RED BLOOD COUNT 2.51 X10'6 (4.20-5.60); RED CELL DISTRIBUTION WIDTH 16.5 % (11.5-14.5); WHITE BLOOD COUNT 6.6 X10'3 (4.5-11.0)
[2018-04-30 07:39] LABS: HEMATOCRIT 21.7 % (35.0-45.0)
[2018-04-30] MEDS: cloNIDine 0.1 mg tablet PO SCH (08:00)
[2018-04-30] MEDS: enoxaparin 40mg/0.4ml syringe SQ SCH (08:00)
[2018-04-30] MEDS: K and/or MAG REPLACEMENT MC SCH (08:00)
[2018-04-30] MEDS: albumin 25% 50mL bottle 100 ML IV SCH (08:55)
[2018-04-30] MEDS: lactobacillus rhamnosus 10,000 MMU CELLS/CAPSULE PO SCH ×2 (08:56→20:24)
[2018-04-30] MEDS: folic acid 1mg tablet PO SCH (08:56)
[2018-04-30] MEDS: lactulose 20gm/30ml cup PO SCH ×2 (09:03→20:00)
[2018-04-30] MEDS: metoprolol tartrate 25mg tablet PO SCH ×2 (09:08→20:25)
[2018-04-30 10:00] VITALS: BP 117/87
[2018-04-30] MEDS: dextrose 5%-normal saline 1,000 ML IV SCH ×2 (10:30→23:50)
[2018-04-30] MEDS: pantoprazole 40mg Tablet.DR PO SCH ×2 (12:20→17:14)
[2018-04-30] MEDS: piperacillin/tazo 4.5gm/100ml 100 ML IV SCH ×2 (12:20→17:14)
[2018-04-30 14:00] VITALS: BP 140/78
[2018-04-30 18:00] VITALS: BP 124/71
--- NOTE | 2018-04-30 18:30 | NUR ---
REPORT TO GILBERTO VILCHIS
[2018-04-30 22:00] VITALS: BP 131/61
[2018-05-01] MEDS: piperacillin/tazo 4.5gm/100ml 100 ML IV SCH ×2 (00:15→08:26)
[2018-05-01 06:00] VITALS: BP 161/68
--- NOTE | 2018-05-01 06:15 | NUR ---
Patient in room [facility]THO 4012. I have received report from GILBERTO VILCHIS and had the opportunity to ask questions and assume patient care.
--- NOTE | 2018-05-01 06:30 | NUR ---
reported to days. noted pt anxious to go home, lab drawing blood to see how H/H results.
[2018-05-01 06:47] LABS: BASOPHILS % (AUTO) 0.7 % (0-1); EOSINOPHILS # (AUTO) 0.2 X10'3 (0-0.9); EOSINOPHILS % (AUTO) 3.1 % (0-6); HEMOGLOBIN 7.8 g/dl (12.0-16.0); LYMPHOCYTES # (AUTO) 1.9 X10'3 (1.1-4.8); LYMPHOCYTES % (AUTO) 27.4 % (21-51); MEAN CORPUSCULAR HEMOGLOBIN 28.6 PG (27.0-31.0); MEAN CORPUSCULAR HGB CONC 33.7 g/dL (33.0-36.5); MEAN CORPUSCULAR VOLUME 84.9 FL (78-98); MEAN PLATELET VOLUME 6.2 FL (7.4-10.4); MONOCYTES # (AUTO) 0.7 X10'3 (0-0.9); NEUTROPHILS % (AUTO) 58.8 % (42-75); PLATELET COUNT 192 X10'3 (140-440); RED BLOOD COUNT 2.71 X10'6 (4.20-5.60); RED CELL DISTRIBUTION WIDTH 16.1 % (11.5-14.5); WHITE BLOOD COUNT 6.9 X10'3 (4.5-11.0)
[2018-05-01 06:55] LABS: ALBUMIN 3.4 G/DL (3.4-5.0); ANION GAP 12 (8-16); BLOOD UREA NITROGEN 15 MG/DL (7-18); BUN/CREATININE RATIO 9.7 (6.6-38.0); CALCIUM 9.5 MG/DL (8.5-10.1); CHLORIDE 105 MMOL/L (99-107); CREATININE 1.55 MG/DL (0.40-0.90); GLUCOSE 126 MG/DL (70-104); MAGNESIUM 1.5 MG/DL (1.5-2.4); POTASSIUM 3.3 MMOL/L (3.5-5.1); SODIUM 138 MMOL/L (135-145); TOTAL CARBON DIOXIDE 20.8 MMOL/L (24-32); eGFR 35 ML/MIN
[2018-05-01] MEDS ORDERED: potassium Cl 20 mEq SR tablet PO PRN (07:25)
[2018-05-01] MEDS ORDERED: potassium Cl 40MEQ/NS 500ml 500 ML IV PRN ×2 (07:25)
[2018-05-01] MEDS: K and/or MAG REPLACEMENT MC SCH (08:00)
[2018-05-01] MEDS: enoxaparin 40mg/0.4ml syringe SQ SCH (08:00)
[2018-05-01] MEDS: lactulose 20gm/30ml cup PO SCH (08:24)
[2018-05-01] MEDS: pantoprazole 40mg Tablet.DR PO SCH (08:24)
[2018-05-01] MEDS: folic acid 1mg tablet PO SCH (08:24)
[2018-05-01] MEDS: lactobacillus rhamnosus 10,000 MMU CELLS/CAPSULE PO SCH (08:25)
[2018-05-01] MEDS: metoprolol tartrate 25mg tablet PO SCH (08:25)
[2018-05-01] MEDS: dextrose 5%-normal saline 1,000 ML IV SCH (08:28)
[2018-05-01] MEDS: potassium Cl 20 mEq SR tablet PO PRN ×2 (08:45→12:35)
[2018-05-01 10:00] VITALS: BP 160/80
--- NOTE | 2018-05-01 11:16 | NUR ---
Student documentation: I have reviewed all interventions, assessments performed and documented by Dayana Egan. Student Medication Administration: For this medication-pass time frame, all medication were reviewed, dispensed, administered and documented per hospital policy by Dayana Egan.
[2018-05-01 11:54] LABS: OCCULT BLOOD STOOL NEGATIVE (Neg)
[2018-05-01] MEDS ORDERED: LACT10SO32 PO (15:20)
--- NOTE | 2018-05-01 16:15 | NUR ---
Student documentation: I have reviewed and agree with all interventions, assessments performed and documented by Lilliam Tate
--- NOTE | 2018-05-01 16:15 | NUR ---
PT DC HOME SAFELY WITH S/O, PRESCRIPTION CALLED TO LIZA GORDILLO. AWARE THAT PATIENT HAS NOT BEEN ON ASPIRIN FOR CVA IN 2018, MAY CONTRAINDICATED FOR HER LIVER DISEASE AND PT IS TO F/U WITH PCP FOR ANTICOAGULANT. PATIENT ACKNOWLEDGES UNDERSTANDING OF DC INSTRUCTIONS.
== END 2018-05-01 16:15 | disposition home or self-care (01) | DRG 279 ==
LOC: ER 12:08 → ED HOLD 18:33 → ORTHO 4S 22:43
PROVIDERS: ADMIT Hospitalist; ATTEND Family Medicine
PROC: 4A10X4Z Monitoring of Central Nervous Electrical Activity, External Approach (ICD-10-PCS; principal; 2018-04-28)
PROC: CF141ZZ Planar Nuclear Medicine Imaging of Gallbladder using Technetium 99m (Tc-99m) (ICD-10-PCS; 2018-04-29)
DX: K72.90 Hepatic failure, unspecified without coma (principal); N17.9 Acute kidney failure, unspecified; E87.0 Hyperosmolality and hypernatremia; G93.89 Other specified disorders of brain; D64.9 Anemia, unspecified; D72.829 Elevated white blood cell count, unspecified; E87.6 Hypokalemia; I12.9 Hypertensive chronic kidney disease with stage 1 through stage 4 chronic kidney disease, or unspecified chronic kidney disease; K70.30 Alcoholic cirrhosis of liver without ascites; B19.20 Unspecified viral hepatitis C without hepatic coma; F10.20 Alcohol dependence, uncomplicated; K80.20 Calculus of gallbladder without cholecystitis without obstruction; N18.9 Chronic kidney disease, unspecified; I69.354 Hemiplegia and hemiparesis following cerebral infarction affecting left non-dominant side; Z82.49 Family history of ischemic heart disease and other diseases of the circulatory system; Z90.710 Acquired absence of both cervix and uterus; Z79.899 Other long term (current) drug therapy
CPT/HCPCS: 36415; 36600; 70450; 70551; 71045; 76700; 78226; 80048; 80053; 80305; 80320; 80329; 81001; 82140; 82272; 82803; 82948; 83735; 84100; 84145; 84443; 84484; 85018; 85025; 85610; 85730; 87070; 87077; 87088; 87186; 92616; 93005; 95816; 96365; 96375; 97110; 97112; 97161; 97530; 99285; A9537; G0378; J0696; J1650; J2405; J2543; J3490; J7042; P9047

== ENCOUNTER 2018-05-30 07:36 | Inpatient (IN) | payer MEDICAID | END 2018-06-03 15:30 | disposition home or self-care (01) | LOC: ER 07:36 → ED HOLD 12:58 → ORTHO 4S 16:30 ==

== ENCOUNTER 2018-06-14 12:10 | Inpatient (IN) | payer MEDICAID | END 2018-06-17 12:45 | disposition home or self-care (01) | LOC: ER 12:10 → SUR 3N 06-15 13:30 → ED HOLD 22:38 ==